=== PATIENT | female | born 1980 | race Caucasian/White ===

== ENCOUNTER 2018-04-30 21:24 | Emergency (ER) | payer SELFPAY ==
[~2018-04-30] VITALS: Ht 154.9 cm; Wt 78.9 kg
[2018-04-30 21:49] VITALS: BP 127/85; PULSE 77; RESP 16; Ht 154.9 cm; Wt 78.9 kg
== END 2018-05-01 00:43 | disposition left against medical advice (07) ==
LOC: E/R 21:24
DX: Z53.21 Procedure and treatment not carried out due to patient leaving prior to being seen by health care provider (principal)